=== PATIENT | male | born 1960 | race Hispanic/Latino ===

== ENCOUNTER → 2021-12-21 | Outpatient (CLI) | payer OTHER | LOC: SHCH 12:44 | PROVIDERS: ATTEND Internal Medicine Cardiovascular Disease | DX: I08.0 Rheumatic disorders of both mitral and aortic valves (principal); R55 Syncope and collapse; E11.9 Type 2 diabetes mellitus without complications; E78.5 Hyperlipidemia, unspecified; I51.7 Cardiomegaly | CPT/HCPCS: 93306 ==

== ENCOUNTER → 2022-01-21 | Outpatient (CLI) | payer OTHER ==
[~2022-01-21] VITALS: Ht 180.3 cm; Wt 110.2 kg
[~2022-01-21] MED LIST: REGADENOSON 0.4 MG/5 ML PF SYG IVP SCH
== END | disposition home or self-care (01) ==
LOC: SHCH 01-15 08:38
PROVIDERS: ATTEND Internal Medicine Cardiovascular Disease
DX: R06.00 Dyspnea, unspecified (principal); R94.31 Abnormal electrocardiogram [ECG] [EKG]; R55 Syncope and collapse
CPT/HCPCS: 78452; 93017; 96374; A9500 ×2; J2785

== ENCOUNTER → 2025-05-09 | Outpatient (CLI) | payer OTHER ==
[~2025-05-09] MED LIST changes: +IOHEXOL 350 MG/ML 100ML INFUS..BTL IV ONE; +IOHEXOL-350 50ML VIAL IV ONE; -REGADENOSON 0.4 MG/5 ML PF SYG IVP SCH
--- NOTE | 2025-05-12 08:52 | CARDIOLOGY ---
RAD REPORT: [facility] CT ANGIO RADIOLOGY REPORT: CORONARY CT ANGIOGRAPHY DATE: May 12, 2025 QUALITY: Excellent CLINICAL HISTORY AND INDICATION: [ chest pain ] TECHNIQUE: After obtaining a preliminary machine welt butter image, contrast imaging performed on an [employer] [id number] scanner. A dedicated, limited window, coronary imaging protocol was used, with single breath-hold, retrospective ECG gating, and automated arrhythmia rejection. 100 cc of low osmolar contrast agent: Omnipaque 350 was delivered via a 18-gauge IV catheter in the right antecubital fossa, using a power injector and followed by 60 cc of normal saline bolus as a chaser. Collimated images were reformatted at 0.5 mm intervals, and sent to an offline independent workstation for interpretation, using 3D anatomic reconstructions: Curved multiplanar reconstructions, maximum intensity projections, and multiplanar imaging. 20 mg IV metoprolol was administered prior to scanning. 0.8 mg SL nitroglycerin was given. CORONARY ARTERY DESCRIPTIONS: The coronary arteries arise in normal position. Left main coronary artery: Normal caliber vessel that bifurcates into the LAD and LCx. No stenosis. Left anterior descending coronary artery: Normal caliber vessel and gives rise to diagonal and septal branches. There is a drug eluting stent in the proximal LAD. Just proximal to the proximal stent edge there is mixed plaque at the ostium with 70-80% stenosis and extending into the proximal stent with in-stent restenosis that appears severe, however, due to stent strut artifact luminal stenosis may not be quantitated. Left circumflex coronary artery: Normal caliber, nondominant and gives rise to a large OM branch. There is mixed plaque in the proximal LCx with 40-50% stenosis. There is a drug eluting stent in the mid LCx, however, due to stent strut artifact luminal stenosis may not be quantitated. Right coronary artery: Large, dominant vessel giving rise to the PL and PDA branches. There is a drug eluting stent in the proximal RCA. Just proximal to th e proximal stent edge there is mixed plaque with 60-70% stenosis and extending into the proximal stent with in-stent restenosis that appears severe, however, due to stent strut artifact luminal stenosis may not be quantitated. CAD-RADs: 4A, severe stenosis of proximal LAD vs stent strut artifact. Thoracic Aorta: Normal diameter. Mary Hall MD Cardiovascular Disease [facility] MARY HALL MD May 12, 2025 08:52
== END | disposition home or self-care (01) ==
LOC: RAH 08:42
PROVIDERS: ATTEND Internal Medicine Cardiovascular Disease
DX: I25.10 Atherosclerotic heart disease of native coronary artery without angina pectoris (principal)
CPT/HCPCS: 75574; J3490; Q9967 ×2

== ENCOUNTER 2025-07-01 13:19 | Emergency (ER) | payer OTHER ==
[~2025-07-01] VITALS: Ht 180.3 cm; Wt 119.7 kg
--- NOTE | 2025-07-01 13:55 | ERN ---
ED Note History of Present Illness Stated Complaint: VISION PROBLEM Chief Complaint: Vision Problem Time Seen by MD: 13:22 Time Seen by Midlevel: 13:23 Dictation: 64-year-old male who presents to the emergency department due to report of having double vision that began 1 week ago. 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 Currently, she is reported having mild headache. The headache is described as generalized. At this time, his level of discomfort a reversal of the headache is rated as a 3/10. Currently, there is no report of any nausea or vomiting. There is no change of mental status. Upon initial evaluation, the patient presents with a normal neurological examination. Allergies: Coded Allergies: [id number] Reductase Inhibitor (Verified Allergy, Unknown, 12/21/21) Emergency Care [employer]: IV Past Medical History Past Medical History: CAD, Diabetes-Type II, Hypotension Surgical History: Other Surgical History Other: CARDIAC STENTS PSYCH History: no pertinent psych hx Review of System Dictation Eyes: Double vision Neuro: Head Initial Vital Sign VS Vital Signs Date Time Temp Pulse Resp B/P (MAP) Pulse Ox O2 Delivery O2 Flow Rate FiO2 07/01/25 13:22 98.2 90 20 114/60 98 Room Air 07/01/25 14:02 0 21 Physical Exam Dictation General: awake, alert, NAD Head/Face: Normocephalic, atraumatic Eyes: PERRL, EOMI ENT: Oral mucosa moist Neck: Trachea midline, supple Cardiovascular: RRR, no edema Respiratory: Symmetrical, non-labored Abdomen: Soft, non-tender, non-distended, no guarding. Skin: Warm, dry, good turgor, no rash MS/Extremity: Pulses equal, no cyanosis, neurovascular intact, FROM Neuro: COAx4, GCS 15, steady gait, Psych: Normal behavior, mood, and affect normal Results (Laboratory/Radiology) Laboratory/Radiology Laboratory Tests Test 07/01/25 13:55 White Blood Count 8.3 K/uL (4.8-10.8) Red Blood Count 5.22 MIL/uL (4.50-6.20) Hemoglobin 14.3 g/dL (14.0-18.0) Hematocrit 44.8 % (42-54) Mean Corpuscular Volume 85.8 fL (79-99) Mean Corpuscular Hemoglobin 27.4 pg (27.0-33.0) Mean Corpuscular Hemoglobin Concent 31.9 g/dL (32.0-36.0) L Red Cell Distribution Width 14.2 % (11.0-15.5) Platelet Count 258 K/uL (130-400) Mean Platelet Volume 11.6 fL (7.5-10.5) H Immature Granulocyte % (Auto) 0.4 % (0-1) Neutrophils (%) (Auto) 63.0 % (40.0-77.0) Lymphocytes (%) (Auto) 27.5 % (21.0-51.0) Monocytes (%) (Auto) 5.9 % (3.0-13.0) Eosinophils (%) (Auto) 3.0 % (0.0-8.0) Basophils (%) (Auto) 0.2 % (0.0-5.0) Neutrophils # (Auto) 5.2 K/uL (1.8-7.7) Lymphocytes # (Auto) 2.3 K/uL (1.0-4.8) Monocytes # (Auto) 0.5 K/uL (0.1-1.0) Eosinophils # (Auto) 0.25 K/uL (0.00-0.70) Basophils # (Auto) 0.02 K/uL (0.00-0.20) Absolute Immature Granulocyte (auto 0.03 K/uL (0-1) Nucleated Red Blood Cells 0.0 % (0.0-0.19) Sodium Level 140 mmol/L (136-145) Potassium Level 4.4 mmol/L (3.5-5.1) Chloride Level 103 mmol/L (101-111) Carbon Dioxide Level 29 mmol/L (21-32) Blood Urea Nitrogen 20 mg/dL (7-18) H Creatinine 1.3 mg/dL (0.5-1.3) Glomerular Filtration Rate Calc 61 mL/min (>90) Random Glucose 234 mg/dL (70-105) H Total Calcium 8.4 mg/dL (8.5-10.1) L Total Bilirubin 0.3 mg/dL (0.2-1.0) Aspartate Amino Transf (AST/SGOT) 25 U/L (10-37) Alanine Aminotransferase (ALT/SGPT) 41 U/L (12-78) Alkaline Phosphatase 135 U/L (50-136) Troponin I High Sensitivity 17 ng/L (4-75) Total Protein 6.7 g/dL (6.0-8.3) Albumin 3.2 g/dL (3.5-5.0) L Labs Reviewed?: Yes CT Scan Comment: CT of the brain without contrast with a negative read as per radiologist's read ED Course ED Course Orders Procedure Category Date Status Time Troponin I High LAB 07/01/25 Complete Sensitivity 13:45 Cbc With Differential LAB 07/01/25 Complete 13:45 Comprehensive LAB 07/01/25 Complete Metabolic Panel 13:45 Ct Head/Brain W/O CT 07/01/25 Resulted Contrast 13:45 Vital Signs Date Time Temp Pulse Resp B/P (MAP) Pulse Ox O2 Delivery O2 Flow Rate FiO2 07/01/25 16:29 98.2 72 16 158/92 98 Room Air* 0 21 07/01/25 14:02 98.2 80 16 126/60 97 Room Air* 0 21 07/01/25 13:22 98.2 90 20 114/60 98 Room Air Medical Decision Making MDM MDM: Differential diagnosis: Diplopia, changes in vision, headache. Rationale: Tests considered and ordered secondary to shared decision making include: Previous outside records reviewed: Old ER visits. Risk of complication and/or morbidity or mortality of patient management: None Medications-Per medication reconciliation Need for hospitalization: Patient does not meet criteria for hospitalization. Need for emergency major/minor surgery: No There are no social concerns with this patient. Prescription drug management Prescriptions will include symptomatic care Patient's prior external medical records from other ER visits were reviewed by me as indicated. Prior testing and results from previous visits were reviewed. Prior tests were taken into account with medical decision making and resource utilization, independent historian/historians were used to obtain complete medical history. I independently interpreted the test that were performed, results were reviewed by me and considered findings on radiology if ordered. Medical management and examination interpretation discussions were had by me with other qualified healthcare professionals as indicated for the patient's care. DX & DISP Disposition: Discharge Departure Impression: Primary Impression: Diplopia Condition: Stable Referrals: SELF,REFERRAL (PCP) Time of Disposition: 16:25 ATTESTATION BY PHYSICIAN I PERFORMED THE SUBSTANTIVE PORTION OF THE VISIT. I HAVE REVIEWED AND PERSONALLY MADE AND APPROVED THE MANAGEMENT PLAN THAT IS DOCUMENTED IN THE NOTE BY MYSELF FOR THE A PP. STEPHANY MEJIA Jul 01, 2025 13:55 DENYS ORTIZ MD Jul 04, 2025 07:44
[2025-07-01 13:58] LABS: IMMATURE GRANULOCYTE ABSOLUTE 0.03 K/uL (0-1); NUCLEATED RED BLOOD CELLS 0.0 % (0.0-0.19); PLATELET COUNT (AUTO) 258 K/uL (130-400); RED BLOOD CELL COUNT(AUTO) 5.22 MIL/uL (4.50-6.20); RED CELL DISTRIBUTION WIDTH 14.2 % (11.0-15.5); WHITE BLOOD COUNT (AUTO) 8.3 K/uL (4.8-10.8)
[2025-07-01 14:10] LABS: CREATININE 1.3 mg/dL (0.5-1.3); GLOMERULAR FILTR. RATE CALC 61.0 mL/min (>90); GLUCOSE,RANDOM 234.0 mg/dL (70-105); SODIUM SERUM 140.0 mmol/L (136-145); UREA NITROGEN, BLOOD 20.0 mg/dL (7-18)
[2025-07-01 14:12] LABS: ASPARTATE AMINOTRANSFERASE 25.0 U/L (10-37); TOTAL PROTEIN, SERUM 6.7 g/dL (6.0-8.3)
--- NOTE | 2025-07-01 15:54 | HMCIMG ---
EXAM: CT Head Without IV contrast. CLINICAL HISTORY: headache TECHNIQUE: Axial computed tomography images of the head/brain without intravenous contrast. COMPARISON: None provided. FINDINGS: BRAIN: No evidence of acute hemorrhage. No mass lesion. No CT evidence for acute territorial infarct. No midline shift or extra-axial collections. VENTRICLES: No hydrocephalus. ORBITS: The orbits are unremarkable. SINUSES AND MASTOIDS: The paranasal sinuses and mastoid air cells are clear. BONES: No fracture. SOFT TISSUES: Unremarkable. IMPRESSION: No acute intracranial abnormality. /Verner
[2025-07-01 16:29] VITALS: BP 158/92; PULSE 72; RESP 16; TEMP 98.2; O2SAT 98
== END 2025-07-01 16:56 | disposition home or self-care (01) ==
LOC: EDH 13:19
DX: H53.2 Diplopia (principal); R51.9 Headache, unspecified; E11.9 Type 2 diabetes mellitus without complications; I25.10 Atherosclerotic heart disease of native coronary artery without angina pectoris; I95.9 Hypotension, unspecified; Z88.8 Allergy status to other drugs, medicaments and biological substances; Z95.5 Presence of coronary angioplasty implant and graft
CPT/HCPCS: 36415; 70450; 80053; 84484; 85025; 99284